=== PATIENT | female | born 1985 | race Native Hawaiian/Other Pacific Islander ===

== ENCOUNTER 2016-11-08 16:00 | Emergency (ER) | payer BC ==
[~2016-11-08] VITALS: Ht 154.9 cm; Wt 67.6 kg
--- NOTE | 2016-11-08 16:25 | NUR ---
DR BUSTOS AT THE BEDSIDE FOR EVAL AND EXAM.
--- NOTE | 2016-11-08 16:52 | NUR ---
Patient discharged to home in stable conditon. Written and verbal after care instructions given. Patient verbalizes understanding of instructions.
[2016-11-08 16:53] VITALS: BP 120/79
== END 2016-11-08 16:53 | disposition home or self-care (01) ==
LOC: ER 16:00
DX: R42 Dizziness and giddiness (principal)
CPT/HCPCS: A4663